=== PATIENT | female | born 1990 | race African-American/Black ===

== ENCOUNTER 2017-04-14 03:12 | Inpatient (IN) ==
[2017-04-14] MEDS ORDERED: ONDANSETRON 4 MG/2 ML VIAL IV PRN ×2 (03:30→09:34)
[2017-04-14] MEDS ORDERED: ACETAMINOPHEN 325 MG TABLET PO PRN ×2 (03:30→09:34)
[2017-04-14] MEDS ORDERED: MEPERIDINE 50 MG/1 ML VIAL IV PRN (03:30)
[2017-04-14] MEDS ORDERED: BUTORPHANOL 2 MG/ML VIAL IV PRN (03:30)
[2017-04-14] MEDS: LACTATED RINGERS 1,000 ML IV SCH ×2 (04:00→07:17)
[2017-04-14 05:36] LABS: Basophils % 0.2 % (0.0-0.8); Eosinophils # 0.1 10*3/uL (0.0-0.87); Eosinophils % 0.4 % (0.00-10.9); Hematocrit 35.3 VOL% (35.7-47.0); Hemoglobin 12.2 GM/DL (12.0-16.0); Immature Granulocytes Absolute 0.31 #; Lymphocytes # 2.7 10*3/uL (1.4-4.0); Lymphocytes % 17.5 % (21.3-54.2); Mean Corpuscular HGB Conc 34.6 GM/DL (32-36); Mean Corpuscular Hemoglobin 33 PG (27-34); Mean Corpuscular Volume 94.1 FL (87-102); Mean Platelet Volume 11.7 FL (9.6-12.0); Monocytes # 1.1 10*3/uL (0.11-0.8); Neutrophils # 11.3 10*3/uL (1.4-7.4); Neutrophils % 72.9 % (38.7-73.9); Platelet Count 156 T/CUMM (130-400); Red Blood Count 3.75 MC/CUMM (3.8-5.5); Red Cell Distribution Width 13.1 % (9.3-17.3); White Blood Count 15.6 T/CUMM (4-12)
[2017-04-14] MEDS ORDERED: FAMOTIDINE 20 MG/2 ML VIAL IV ONE (06:00)
[2017-04-14] MEDS ORDERED: CITRIC ACID/SODIUM CITRATE 30 ML UDCUP PO ONE (06:00)
[2017-04-14 06:25] LABS: Alanine Aminotransferase 21 U/L (13-56); Albumin 2.5 G/DL (3.4-5.0); Alkaline Phosphatase 169 U/L (45-117); Aspartate Amino Transferase 17 U/L (0-37); Bilirubin,Total < 0.39 MG/DL (0.2-1.0); Blood Urea Nitrogen 12 MG/DL (7-18); Glucose 72 MG/DL (74-106); Osmolality,Calculated 281.1 MOS/KG (273-304); Potassium 4.2 MMOL/L (3.5-5.1); Sodium 142 MMOL/L (136-145); Total Protein 5.8 G/DL (6.4-8.3)
[2017-04-14] MEDS ORDERED: OXYTOCIN 10 UNIT/ML VIAL ONE (07:25)
[2017-04-14] MEDS ORDERED: OXYTOCIN/LR 30 UNIT/1,000 ML BAG IV ONE (07:48)
[2017-04-14] MEDS ORDERED: OXYTOCIN 10 UNIT/ML VIAL IM ONE (07:48)
[2017-04-14] MEDS ORDERED: ceFAZolin 2,000 MG in PREMIX 1 EACH IV ONE (07:50)
[2017-04-14] MEDS ORDERED: ONDANSETRON 4 MG/2 ML VIAL ONE (08:01)
[2017-04-14 09:11] LABS: Apearance,Urine CLEAR (Clear); Bilirubin,Urine Negative (Negative); Blood, Urine Negative (Negative); Glucose,Urine (UA) Negative (Negative); Ketones,Urine Negative (Negative); Mucus,Urine Occasional /LPF (Occasional); Nitrite,Urine Negative (Negative); Protein,Urine Negative; RBC,Urine 2 /HPF (0-4); Squamous Epithelial Cell,Urine Occasional /HPF (0-10); Urine Color Straw (Yellow); Urine Specific Gravity 1.009 (1.001-1.035); Urine Urobilinogen < 2.0 EU/DL (0.2-1.0); WBC,Urine <1 /HPF (0-6)
[2017-04-14 09:12] LABS: Cord Arterial Blood HCO3 20.8 MMOL/L
[2017-04-14 09:14] LABS: Cord Venous Blood HCO3 21.8 MMOL/L; Cord Venous Blood PCO2 42.3 MMHG; Cord Venous Blood PO2 31.7
--- NOTE | 2017-04-14 09:29 | OB/GYN History & Physical ---
History of Present Illness Chief complaint: 38 weeks admitted with spontaneous rupture membranes, previous sec History of present illness: Ms. Brown is a 26 year old female 2 para 1 EDC is 04/28/2017 presents with spontaneous rupture membranes. Patient is a previous section 1. Patient is stable, irregular uterine contraction, positive rupture membranes. heart tones are category 1. Risks benefits thoroughly discussed she is in full agreement. Home Medications Medication Instructions Recorded Confirmed Type Diclofenac Potassium Tab [Cataflam] 50 mg PO TID #14 tablet 02/09/16 Rx Neomycin/Polymyx/Hc Otic Soln 4 drop LEFT EAR TID #10 ml 02/09/16 Rx [Cortisporin Otic Soln] Acetamin/Codeine 300-30 Tab 1 tablet PO Q4H #5 tablet 11/11/16 Rx [Tylenol/Codeine #3] Allergies Allergy/AdvReac Type Severity Reaction Status Date / Time No Known Allergies Allergy Verified 02/09/16 06:16 Medical,Surgical,& Family Hx - Medical History Respiratory: History of: Asthma (as a child) Musculoskeletal: No history of: Amputation Reproductive: No history of: Ectopic , Complication - Surgical History Cardiac Surgeries: Patient Denies: Cardiac Catheterization Thoracic Surgeries: Patient denies;: Organ Transplant HEENT Surgeries: Patient denies: Tonsilectomy & Adenoidectomy Abdominal Surgeries: Patient denies: Abdominal Surgery Reproductive Surgeries: Surgical HX of;: Section (x1) Patient denies;: Genitourinary Surgery - Family History Family History: Reports;: Family Cancer (mom-pancreatic maternal grandmother- colon), Family Diabetes (maternal grandfather), Family Heart Disease (maternal grandfather), Family Hypertension (mother) Denies;: Family Anesthesia Reaction, Family Hematology, Family Psychiatric Problems, Family Stroke, Additional Family History - Social History Smoking Status: Never smoker Frequency of Alcohol Use: None 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 - Constitutional Vitals: Vital Signs Temp Pulse Resp BP Pulse Ox 04/14/17 04:00 98.2 F 88 20 138/87 04/14/17 03:21 98.2 F 95 H 20 128/80 99 General appearance: no acute distress - Antepartum / Post Antepartum Exam Cervix - Dilatation: Cervix long thick high - Head Head exam: Present: normal inspection - Eye Eye exam: Present: EOMI Pupils: Present: ZEUS - ENT ENT exam: Present: normal exam - Neck Neck exam: Present: normal inspection - Respiratory Respiratory exam: Present: clear to auscultation bilaterally - Breast Breasts: as per HPI Menstruation: as per HPI - Cardiovascular Cardiovascular exam: Present: regular rate and rhythm - GI/Abdominal GI/Abdominal exam: Present: normal bowel sounds - Extremities Exam Extremities exam: Present: normal inspection - Back Exam Back exam: Present: normal inspection - Neurological Exam Neurological exam: Present: alert, oriented X3 - Psychiatric Psychiatric exam: Present: normal affect - Skin Skin exam: Present: normal color, warm Assessment and Plan (1) Status post repeat low transverse section Status: Acute Assessment and plan: Low transverse section, spontaneous rupture membranes, risks benefits are discussed she is in full agreement Current Visit: Yes Results - Labs CBC & BMP: 04/14/17 05:01 04/14/17 05:01
--- NOTE | 2017-04-14 09:31 | Anesthesia Post-Op ---
Anesthesia Post OP - Post Ansesthetic Evaluation Patient seen in post op: Yes Resp: within normal limits CV: within normal limits Mental: within normal limits Temp: within normal limits Wppl-Kn-Drjiowxvy: within normal limits Nausea and Vomiting: within normal limits Pain: within normal limits
[2017-04-14] MEDS ORDERED: fentaNYL 100 MCG/2 ML VIAL ONE (09:33)
[2017-04-14] MEDS ORDERED: MORPHINE 10 MG/10 ML VIAL ONE (09:33)
--- NOTE | 2017-04-14 09:33 | Operative Note ---
Date of procedure: 04/14/17 Procedure: Preoperative diagnosis: 38 weeks, spontaneous rupture membranes Postoperative diagnosis: Same Anesthesia:[] Reason Estimated blood loss: [] Less than 300 Surgeon: Dr. Davila Findings: [] 4 lbs. 11 oz. female, Apgars 9 at 1 minute 9 at 5 minutes, 084 7 AM , Complications: None Procedure: Low transverse section The patient was taken to the operating suite heart tones were obtained prior to and after regional anesthesia was obtained. She was placed in supine position her abdomen was prepped and draped in usual manner for major abdominal surgery. Through an abdominal incision the skin, subcutaneous, fascial layer and peritoneal the abdomen was entered. The bladder flap was created and a low transverse incision was made.. Fluid was clear and normal amount X, Apgars, the placenta was delivered and sent to lab for further evaluation. Injected with intrauterine Pitocin. The first layer of the uterus was closed with #1 Vicryl in a continuous locking manner. Close to imbricate the first layer with #1 Vicryl. The peritoneum was approximated with #2-0 Vicryl.[] All the last sponges and instruments were accounted for -2.) #2-0 Vicryl. Fascia was approximated with #0-0 Maxon.. The skin was approximated with bailey. She tolerated procedure well and was taken to recovery room in stable condition. Surgeon / Physician: Roshan Davila Results - Labs CBC & BMP: 04/14/17 05:01 04/14/17 05:01 Discharge Plan - Discharge Medications No Action Diclofenac Potassium Tab [Cataflam] 50 mg PO TID #14 tablet Neomycin/Polymyx/Hc Otic Soln [Cortisporin Otic Soln] 4 drop LEFT EAR TID # 10 ml Acetamin/Codeine 300-30 Tab [Tylenol/Codeine #3] 1 tablet PO Q4H #5 tablet - Follow Up or Referral - Forms/Instructions
[2017-04-14] MEDS ORDERED: OXYTOCIN/LR 20 UNIT/1,000 ML BAG IV ONE (09:34)
[2017-04-14] MEDS ORDERED: LACTATED RINGERS 1,000 ML IV SCH (10:00)
[2017-04-14] MEDS ORDERED: RHO(D) IMMUNE GLOBULIN 300 MCG SYRINGE IM ONE (10:00)
[2017-04-14] MEDS ORDERED: HYDROmorphone 2 MG/1 ML VIAL ONE (10:29)
[2017-04-14] MEDS ORDERED: HYDROmorphone 2 MG/1 ML VIAL IV SCH (10:30)
[2017-04-14] MEDS: HYDROmorphone 2 MG/1 ML VIAL IV PRN ×2 (12:34→21:05)
[2017-04-14] MEDS: IBUPROFEN 800 MG TABLET PO PRN ×2 (12:35→23:39)
[2017-04-14] MEDS ORDERED: diphenhydrAMINE 50 MG/1 ML VIAL ONE (13:54)
[2017-04-14] MEDS ORDERED: diphenhydrAMINE 50 MG/1 ML VIAL IV PRN (13:55)
[2017-04-14 16:35] LABS: Basophils % 0.2 % (0.0-0.8); Eosinophils # 0.1 10*3/uL (0.0-0.87); Eosinophils % 0.3 % (0.00-10.9); Hematocrit 32.5 VOL% (35.7-47.0); Hemoglobin 11.6 GM/DL (12.0-16.0); Immature Granulocytes % 1.3 %; Immature Granulocytes Absolute 0.24 #; Lymphocytes # 3.4 10*3/uL (1.4-4.0); Lymphocytes % 18.9 % (21.3-54.2); Mean Corpuscular HGB Conc 35.7 GM/DL (32-36); Mean Corpuscular Hemoglobin 33 PG (27-34); Mean Corpuscular Volume 92.3 FL (87-102); Mean Platelet Volume 10.5 FL (9.6-12.0); Monocytes # 0.9 10*3/uL (0.11-0.8); Monocytes % 4.9 % (1.7-12.7); Neutrophils # 13.3 10*3/uL (1.4-7.4); Neutrophils % 74.4 % (38.7-73.9); Platelet Count 174 T/CUMM (130-400); Red Blood Count 3.52 MC/CUMM (3.8-5.5); Red Cell Distribution Width 12.8 % (9.3-17.3); White Blood Count 17.9 T/CUMM (4-12)
[2017-04-14] MEDS: DOCUSATE SODIUM 100 MG CAPSULE PO SCH (21:06)
[2017-04-15] MEDS: IBUPROFEN 800 MG TABLET PO PRN ×3 (05:06→19:37)
[2017-04-15 06:05] LABS: Basophils % 0.2 % (0.0-0.8); Eosinophils % 0.2 % (0.00-10.9); Hematocrit 31.8 VOL% (35.7-47.0); Hemoglobin 11.2 GM/DL (12.0-16.0); Immature Granulocytes % 1.5 %; Immature Granulocytes Absolute 0.25 #; Lymphocytes # 2.2 10*3/uL (1.4-4.0); Lymphocytes % 13.5 % (21.3-54.2); Mean Corpuscular HGB Conc 35.2 GM/DL (32-36); Mean Corpuscular Hemoglobin 33 PG (27-34); Mean Corpuscular Volume 92.7 FL (87-102); Mean Platelet Volume 10.7 FL (9.6-12.0); Monocytes % 6.1 % (1.7-12.7); Neutrophils # 12.7 10*3/uL (1.4-7.4); Neutrophils % 78.5 % (38.7-73.9); Platelet Count 175 T/CUMM (130-400); Red Blood Count 3.43 MC/CUMM (3.8-5.5); Red Cell Distribution Width 12.7 % (9.3-17.3); White Blood Count 16.2 T/CUMM (4-12)
[2017-04-15] MEDS: MAGNESIUM HYDROXIDE SUSP 30 ML UDCUP PO PRN ×2 (09:20→19:37)
[2017-04-15] MEDS: MULTIVITAMIN (PRENATAL) TABLET PO SCH (09:20)
[2017-04-15] MEDS: DOCUSATE SODIUM 100 MG CAPSULE PO SCH ×3 (09:20→22:03)
[2017-04-15] MEDS: SIMETHICONE CHEW 80 MG TABLET PO PRN ×2 (09:20→19:37)
--- NOTE | 2017-04-15 13:45 | Progress Note ---
Assessment and Plan (1) Status post repeat low transverse section Status: Acute Assessment and plan: Low transverse section, spontaneous rupture membranes, risks benefits are discussed she is in full agreement Current Visit: Yes Family Medicine PN Sub Interval history: Postop day #1 Status post section Patient tolerating diet, ambulating well, voiding well, no bowel movements at this time but passing gas. Incision sites intact Extremities well with no limits and neurologic grossly intact Assessment plan That is post section continue with present therapy Exam (Progress Note) - Constitutional Vitals: Period Temp Pulse Resp BP Sys/Esqueda Pulse Ox Last 24 Hr 97.5 F-98.4 F 69-104 18-20 112-137/60-79 97-98 Results - Labs CBC & BMP: 04/15/17 05:43 04/14/17 05:01 Quality Measures - VTE Contraindication to Pharmacological VTE Prophylaxis: Clinical assessment deems Pt at low risk, no prophalaxis needed
[2017-04-16] MEDS: IBUPROFEN 800 MG TABLET PO PRN ×2 (02:05→10:59)
[2017-04-16 07:34] VITALS: BP 123/74
[2017-04-16] MEDS ORDERED: BISACODYL 10 MG SUPP RECTAL ONE (08:45)
[2017-04-16] MEDS: DOCUSATE SODIUM 100 MG CAPSULE PO SCH (09:22)
[2017-04-16] MEDS: MAGNESIUM HYDROXIDE SUSP 30 ML UDCUP PO PRN (09:22)
[2017-04-16] MEDS: SIMETHICONE CHEW 80 MG TABLET PO PRN (09:23)
[2017-04-16] MEDS: MULTIVITAMIN (PRENATAL) TABLET PO SCH (09:23)
--- NOTE | 2017-04-16 11:58 | Discharge Summary ---
Hospital Course - Hospital Course Hospital Course: Status post section Patient has had multiple bowel movements, tolerating diet, voiding well, ambulating well. Incision sites intact Abdomen soft nontender Extremities well with no limits neurologic grossly intact Continue with present therapy Diagnosis - Discharge Diagnosis (1) Status post repeat low transverse section Status: Acute Specialty Discharge - Follow Up or Referrals Follow up with: Roshan Davila MD [Physician] - Discharge Plan - Discharge Data Condition at Discharge: Stable Discharge Diet: advance to your usual diet Activity: resume usual activities as tolerated, increase activity as tolerated Hygiene: may shower Contact your physician if you experience:: fever over 101, Shortness of breath, Bleeding - Discharge Medications New HYDROcodone/ACETAMIN 5-325 [[place] 5-325] 1 tablet PO Q6H PRN #30 tablet PRN Reason: Pain Moderate (4-7) Simethicone Chew Tab [Mylicon Chew Tab] 80 mg PO Q6H PRN #14 tablet PRN Reason: Gas Ibuprofen Tab [Motrin Tab] 800 mg PO Q6HR PRN #30 tablet PRN Reason: Pain Severe (8-10) No Action Diclofenac Potassium Tab [Cataflam] 50 mg PO TID #14 tablet Neomycin/Polymyx/Hc Otic Soln [Cortisporin Otic Soln] 4 drop LEFT EAR TID # 10 ml Acetamin/Codeine 300-30 Tab [Tylenol/Codeine #3] 1 tablet PO Q4H #5 tablet - Follow Up or Referral Follow Up: Roshan Davila MD [Physician] - - Forms/Instructions Instructions: Section (DC), Depression (GEN), Surgical Site Infections (GEN), Bleeding (DC) Exam - Constitutional Vitals: Period Temp Pulse Resp BP Sys/Esqueda Pulse Ox Last 24 Hr 97.6 F-98.8 F 74-91 18-20 118-133/69-75 98-98 DS: Provider Date of admission: 04/14/17 03:30 Primary care physician: . No PCP Attending physician on admission: Roshan Davila MD Consults: 04/14/17 03:30 Consult to Anesthesiology [CONS] Routine Consulting Provider: Reason for Anesthesiology: Epidural Consult Comment: Epidural for pain managment 04/14/17 09:34 Consult to Home Office Representative [CONS] Routine Consult Home Office Representative: Breast Feeding Discharging clinician: Roshan Davila MD
[2017-04-16] MEDS ORDERED: BISACODYL 10 MG SUPP RECTAL SCH (12:00)
--- NOTE | 2017-04-16 12:16 | Pathology Report from [facility] ---
[facility] ACCESSION # : [id number] PATIENT NAME : Arcenio Mercedes ORDERING DR : IGNACIA WRIGHT MD CLINICAL HX: IUP @ 38.0 wks gestation, SROM, previous C/S, genital warts, suspected IUGR POST-OP DX: Same SPECIMEN INFO: Placenta GROSS DESCRIPTION: The specimen is received fresh labeled ARCENIO MERCEDES consists a 362.0 gm placenta measuring 15.3 x 15.4 x 2.4 cm. The membranes are pink-tarango and translucent. The umbilical cord is eccentrically inserted, contains three vessels and is 8.3 cm. The surface is roa- blue. The maternal surface is beefy red with mildly disrupted cotyledons with areas of clotted blood and multiple calcifications present. No gross abnormalities upon sectioning. Sections submitted: (A) membranes and cord and (B) and maternal surfaces. DIAGNOSIS FOR ARCENIO MERCEDES: PLACENTA, MEMBRANES, UMBILICAL CORD: Focal placental infarction with dystrophic calcification, mild intervillous blood. Tri -vessel umbilical cord, eccentrically inserted. Membranes with focal chronic inflammation and attached blood. COLLECTED DATE: 04/15/2017 [facility] REPORT DATE: 04/16/2017 ELECTRONICALLY SIGNED BY: Bryan Duran M.D. 04/16/2017 - 11:49:16 [email or web address]
[2017-04-16] MEDS ORDERED: DIPH/TET/ACEL PERT BOOSTER VACCINE 0.5 ML VIAL IM ONE (13:00)
== END 2017-04-16 14:00 | disposition home or self-care (01) | DRG 540 ==
LOC: N.LDOUT 03:12 → N.LD 03:15 → N.OB 11:26
PROVIDERS: ADMIT Obstetrics & Gynecology; ATTEND Obstetrics & Gynecology
PROC: LDCSECT (ICD-10-PCS; 2017-04-14 07:30)

== ENCOUNTER 2019-09-26 05:53 | Inpatient (IN) ==
[2019-09-26] MEDS ORDERED: CITRIC ACID/SODIUM CITRATE 30 ML UDCUP PO ONE (06:00)
[2019-09-26] MEDS ORDERED: ceFAZolin 2,000 MG in PREMIX 1 EACH IV ONE (06:00)
[2019-09-26] MEDS ORDERED: FAMOTIDINE 20 MG/2 ML VIAL IV ONE (06:00)
[2019-09-26] MEDS ORDERED: OXYTOCIN/LR 30 UNIT/1,000 ML BAG IV ONE (06:02)
[2019-09-26] MEDS ORDERED: OXYTOCIN 10 UNIT/ML VIAL IM ONE (06:02)
[2019-09-26] MEDS: LACTATED RINGERS 1,000 ML IV SCH ×3 (06:15→18:12)
[2019-09-26 06:22] LABS: Basophils % 0.1 % (0.0-0.8); Eosinophils # 0.1 10*3/uL (0.0-0.87); Eosinophils % 0.5 % (0.00-10.9); Hematocrit 34.5 VOL% (35.7-47.0); Hemoglobin 11.3 GM/DL (12.0-16.0); Immature Granulocytes % 1.8 %; Immature Granulocytes Absolute 0.26 #; Lymphocytes # 3.8 10*3/uL (1.4-4.0); Lymphocytes % 25.9 % (21.3-54.2); Mean Corpuscular HGB Conc 32.8 GM/DL (32-36); Mean Corpuscular Volume 97.7 FL (87-102); Mean Platelet Volume 10.6 FL (9.6-12.0); Monocytes % 7.5 % (1.7-12.7); Neutrophils % 64.2 % (38.7-73.9); Platelet Count 254 T/CUMM (130-400); Red Blood Count 3.53 MC/CUMM (3.8-5.5); Red Cell Distribution Width 13.7 % (9.3-17.3); White Blood Count 14.8 T/CUMM (4-12)
[2019-09-26] MEDS ORDERED: LIDOCAINE 2% 5 ML VIAL ONE (07:18)
[2019-09-26] MEDS ORDERED: DEXAMETHASONE 4 MG/1 ML VIAL ONE (07:18)
[2019-09-26] MEDS ORDERED: ROPIVACAINE 0.5% 30 ML VIAL ONE (07:18)
[2019-09-26 10:02] LABS: Cord Arterial Blood HCO3 24.3 MMOL/L
[2019-09-26 10:04] LABS: Cord Venous Blood HCO3 21.5 MMOL/L; Cord Venous Blood PO2 39.8 MMHG
[2019-09-26 10:09] LABS: Apearance,Urine CLEAR (Clear); Bilirubin,Urine Negative (Negative); Blood, Urine Negative (Negative); Glucose,Urine (UA) Negative (Negative); Ketones,Urine Negative (Negative); Mucus,Urine Occasional /LPF (Occasional); Nitrite,Urine Negative (Negative); Protein,Urine Negative; RBC,Urine <1 /HPF (0-4); Squamous Epithelial Cell,Urine Occasional /HPF (0-10); Urine Color Straw (Yellow); Urine Specific Gravity 1.012 (1.001-1.035); Urine Urobilinogen < 2.0 EU/DL (0.2-1.0); WBC,Urine <1 /HPF (0-6)
[2019-09-26] MEDS ORDERED: ONDANSETRON 4 MG/2 ML VIAL IV PRN (10:47)
[2019-09-26] MEDS ORDERED: ACETAMINOPHEN 325 MG TABLET PO PRN (10:47)
[2019-09-26] MEDS ORDERED: OXYTOCIN/LR 20 UNIT/1,000 ML BAG IV ONE (10:47)
[2019-09-26] MEDS ORDERED: RHO(D) IMMUNE GLOBULIN 300 MCG SYRINGE IM ONE (10:47)
[2019-09-26] MEDS ORDERED: ceFAZolin 1,000 MG in SYRINGE 1 EACH IV SCH (11:00)
[2019-09-26] MEDS ORDERED: PHENYLEPHRINE 1 MG/10 ML SYRINGE IV ONE (11:29)
[2019-09-26] MEDS ORDERED: fentaNYL 100 MCG/2 ML VIAL ONE (11:30)
[2019-09-26] MEDS ORDERED: BUPIVACAINE SPINAL 0.75% 2 ML AMP SPINAL ONE (11:31)
[2019-09-26] MEDS ORDERED: MORPHINE 10 MG/10 ML VIAL ONE (11:31)
[2019-09-26] MEDS ORDERED: MIDAZOLAM 2 MG/2 ML VIAL ONE (11:34)
[2019-09-26] MEDS ORDERED: HYDROmorphone 2 MG/1 ML VIAL IV ONE (12:24)
[2019-09-26] MEDS: diphenhydrAMINE 50 MG/1 ML VIAL IV PRN (17:19)
[2019-09-26] MEDS: ceFAZolin 1,000 MG in SYRINGE 1 EACH IV SCH (18:26)
[2019-09-26 18:58] LABS: Basophils % 0.1 % (0.0-0.8); Hematocrit 32.7 VOL% (35.7-47.0); Hemoglobin 11.2 GM/DL (12.0-16.0); Immature Granulocytes % 1.5 %; Immature Granulocytes Absolute 0.35 #; Lymphocytes # 1.8 10*3/uL (1.4-4.0); Lymphocytes % 7.9 % (21.3-54.2); Mean Corpuscular HGB Conc 34.3 GM/DL (32-36); Mean Corpuscular Volume 94.2 FL (87-102); Mean Platelet Volume 10.7 FL (9.6-12.0); Monocytes % 3.9 % (1.7-12.7); Neutrophils % 86.6 % (38.7-73.9); Platelet Count 220 T/CUMM (130-400); Red Blood Count 3.47 MC/CUMM (3.8-5.5); Red Cell Distribution Width 13.4 % (9.3-17.3); White Blood Count 22.9 T/CUMM (4-12)
[2019-09-26 21:01] LABS: Band Neutrophils 2 % (0-10); Lymphocytes 11 % (20-55); Segmented Neutrophils 84 % (50-85); Total Cells Counted 100
[2019-09-26 21:02] LABS: Macrocytosis Slight; Platelet Estimate Normal
[2019-09-26] MEDS: DOCUSATE SODIUM 100 MG CAPSULE PO SCH (21:09)
[2019-09-26] MEDS: SIMETHICONE CHEW 80 MG TABLET PO PRN (21:13)
[2019-09-26] MEDS: IBUPROFEN 800 MG TABLET PO PRN (23:17)
[2019-09-27] MEDS: ceFAZolin 1,000 MG in SYRINGE 1 EACH IV SCH (01:51)
[2019-09-27] MEDS: diphenhydrAMINE 50 MG/1 ML VIAL IV PRN (01:59)
[2019-09-27] MEDS: LACTATED RINGERS 1,000 ML IV SCH (05:25)
[2019-09-27 06:09] LABS: Basophils % 0.1 % (0.0-0.8); Eosinophils # 0.1 10*3/uL (0.0-0.87); Eosinophils % 0.3 % (0.00-10.9); Hematocrit 29.5 VOL% (35.7-47.0); Hemoglobin 10.1 GM/DL (12.0-16.0); Immature Granulocytes % 1.7 %; Immature Granulocytes Absolute 0.34 #; Lymphocytes # 3.6 10*3/uL (1.4-4.0); Lymphocytes % 17.8 % (21.3-54.2); Mean Corpuscular HGB Conc 34.2 GM/DL (32-36); Mean Corpuscular Volume 95.5 FL (87-102); Mean Platelet Volume 10.9 FL (9.6-12.0); Monocytes % 7.2 % (1.7-12.7); Neutrophils % 72.9 % (38.7-73.9); Platelet Count 210 T/CUMM (130-400); Red Blood Count 3.09 MC/CUMM (3.8-5.5); Red Cell Distribution Width 13.5 % (9.3-17.3); White Blood Count 20.1 T/CUMM (4-12)
[2019-09-27 06:55] LABS: Eosinophils 1 % (0-10); Lymphocytes 18 % (20-55); Nucleated Red Blood Cells 1 (0-5); Platelet Estimate Normal; Segmented Neutrophils 77 % (50-85); Total Cells Counted 100
[2019-09-27 06:59] LABS: Stomatocytes Slight; Target Cells Slight
[2019-09-27] MEDS: MULTIVITAMIN (PRENATAL) TABLET PO SCH (09:56)
[2019-09-27] MEDS: DOCUSATE SODIUM 100 MG CAPSULE PO SCH ×2 (09:56→20:06)
[2019-09-27] MEDS: SIMETHICONE CHEW 80 MG TABLET PO PRN ×2 (09:59→18:25)
[2019-09-27] MEDS: IBUPROFEN 800 MG TABLET PO PRN ×2 (12:56→23:46)
[2019-09-27] MEDS: oxyCODONE/ACETAMINOPHEN 5-325 MG TABLET PO PRN ×2 (14:05→20:05)
[2019-09-27] MEDS ORDERED: diphenhydrAMINE CAP 25 MG CAPSULE PO PRN (16:28)
[2019-09-27] MEDS: MAGNESIUM HYDROXIDE SUSP 30 ML UDCUP PO PRN (18:29)
[2019-09-27] MEDS: METOCLOPRAMIDE 10 MG TABLET PO SCH (20:06)
[2019-09-28] MEDS: METOCLOPRAMIDE 10 MG TABLET PO SCH (05:55)
[2019-09-28 07:24] VITALS: BP 108/73
[2019-09-28] MEDS: MULTIVITAMIN (PRENATAL) TABLET PO SCH ×2 (07:42→10:57)
[2019-09-28] MEDS: MAGNESIUM HYDROXIDE SUSP 30 ML UDCUP PO PRN (07:42)
[2019-09-28] MEDS: DOCUSATE SODIUM 100 MG CAPSULE PO SCH ×2 (07:42→10:56)
[2019-09-28] MEDS: oxyCODONE/ACETAMINOPHEN 5-325 MG TABLET PO PRN (10:59)
== END 2019-09-28 12:55 | disposition home or self-care (01) | DRG 540 ==
LOC: N.LDOUT 05:53 → N.LD 05:54 → N.OB 14:02
PROVIDERS: ADMIT Obstetrics & Gynecology; ATTEND Obstetrics & Gynecology